=== PATIENT | female | born 1970 | race Caucasian/White ===

== ENCOUNTER 2017-04-08 11:48 | Emergency (ER) | payer BC ==
[2017-04-08 12:23] VITALS: BP 150/92
[2017-04-08] MEDS ORDERED: HYDROmorphone 2 MG/ML SDV IVPUSH STA (12:23)
[2017-04-08] MEDS ORDERED: Iopamidol 755 Mg/ML 100 ML Bottle IV ONE (12:33)
--- NOTE | 2017-04-08 13:15 | EDM.PDOC ---
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 No N/V/D. no Dysuria. No trauma. S /P hysterectomy. BP 150/92 Pulse 78 Temp 36.6 RR 17 Pulse ox 100% Onset: Today Onset Date: 04/08/17 Onset Time: 03:00 Duration: Hour(s):, Intermittent Location: Reports: Abdomen (RLQ of abdomen) Quality: Reports: Dull, Pressure, Stabbing, Throbbing Severity: Moderate Improves with: Reports: Rest Worsens with: Reports: Movement Context: Reports: Other (Sudden onset) Associated Symptoms: Reports: No Other Symptoms right lower abdomen Pain Score (Numeric/FACES): 7 - Related Data Allergies Allergy/AdvReac Type Severity Reaction Status Date / Time naproxen sodium [From Aleve] Allergy Mild Itching Verified 04/08/17 12:15 milnacipran HCl Allergy Cannot Verified 04/08/17 12:15 [From Savella] Remember Penicillins Allergy Hives Verified 04/08/17 12:15 pregabalin [From Lyrica] Allergy Change Verified 04/08/17 12:15 Mental Status tramadol Allergy Vomiting Verified 04/08/17 12:15 hydromorphone [Hydromorphone] AdvReac Intermediate Vomiting Verified 04/08/17 12 :15 morphine AdvReac Intermediate Vomiting Verified 04/08/17 12:15 Home Meds: Home Meds ARIPiprazole [Abilify] 10 mg PO DAILY 07/19/13 [History] Hydrochlorothiazide/Losartan [Hyzaar 50-12.5 MG] 1 tab PO DAILY 07/19/13 [ History] Spironolactone 100 mg PO DAILY 07/19/13 [History] Temazepam [Restoril] 30 mg PO BEDTIME 07/19/13 [History] Vilazodone [Viibryd] 40 mg PO DAILY 07/19/13 [History] Levothyroxine Sodium [Synthroid] 1 tab PO DAILY 09/02/15 [History] Levothyroxine Sodium [Synthroid] 200 mcg PO ACBREAKFAST 09/02/15 [History] Nystatin 500,000 unit PO QID PRN #20 ml 09/02/15 [Rx] Enoxaparin Sodium [Lovenox] 90 mg SQ ONETIME #1 ml 10/30/16 [Rx] Acetaminophen/HYDROcodone [[place] 325-5 MG] 1 tab PO Q4H PRN #6 tab 04/08/17 [Rx] Past Medical History Cardiovascular History: Reports: Hypertension Musculoskeletal History: Reports: Other (See Below) Other Musculoskeletal History: FIBROMYALGIA - Past Surgical History GI Surgical History: Reports: Other (See Below) Social & Family History - Family History Family Medical History: Noncontributory - Tobacco Use Smoking Status *Q: Current Every Day Smoker Years of Tobacco use: 30 Packs/Tins Daily: 1 Used Tobacco, but Quit: Yes Month Tobacco Last Used: 2004 Second Hand Smoke Exposure: No - Alcohol Use Days Per Week of Alcohol Use: 1 Number of Drinks Per Day: 1 Total Drinks Per Week: 1 - Recreational Drug Use Recreational Drug Use: No ED ROS GENERAL - Review of Systems Review Of Systems: See Below Constitutional: Reports: No Symptoms HEENT: Reports: No Symptoms Respiratory: Reports: No Symptoms Cardiovascular: Reports: No Symptoms Endocrine: Reports: No Symptoms GI/Abdominal: Reports: Abdominal Pain (RLQ of abdomen) : Reports: No Symptoms Musculoskeletal: Reports: No Symptoms Skin: Reports: No Symptoms Neurological: Reports: No Symptoms Psychiatric: Reports: No Symptoms Hematologic/Lymphatic: Reports: No Symptoms Immunologic: Reports: No Symptoms ED EXAM, GI/ABD - Physical Exam Exam: See Below Exam Limited By: No Limitations General Appearance: Alert, Moderate Distress Eyes: Bilateral: Normal Appearance Ears: Normal External Exam Nose: Normal Inspection Throat/Mouth: Normal Inspection Head: Atraumatic, Normocephalic Neck: Normal Inspection, Supple Respiratory/Chest: No Respiratory Distress, Lungs Clear, Normal Breath Sounds Cardiovascular: Normal Peripheral Pulses, Regular Rate, Rhythm GI/Abdominal Exam: Tender (RLQ of abdomen) (Female) Exam: Deferred Rectal (Female) Exam: Deferred Back Exam: Normal Inspection, Full Range of Motion Extremities: Normal Inspection, Normal Range of Motion, Non-Tender, No Pedal Edema Neurological: Alert, Oriented, CN II-XII Intact, Normal Cognition, Normal Gait Psychiatric: Normal Affect, Normal Mood Skin Exam: Warm, Dry, Intact, Normal Color, No Rash Lymphatic: No Adenopathy Course - Vital Signs Text/Narrative:: 46 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 No N/V/D. no Dysuria. No trauma. S /P hysterectomy. BP 150/92 Pulse 78 Temp 36.6 RR 17 Pulse ox 100% PE: WNWD WF C/O RLQ abd. pain with guarding Imaging: abd/pelvis CT: Neg for APPY, RAD rcommends Pelvic US Labs: CBC, BMP and UA all neg Impression: RLQ abd. pain, cause not determined Tx: Dilaudid Reexam: Improved Plan: D/C with instructions Last Recorded V/S: Last Vital Signs Temp 36.8 C 04/08/17 12:00 Pulse 78 04/08/17 12:00 Resp 17 04/08/17 12:00 BP 150/92 H 04/08/17 12:00 Pulse Ox 100 04/08/17 12:00 - Orders/Labs/Meds Labs: Laboratory Tests 04/08/17 04/08/17 04/08/17 Range/Units 11:59 12:30 12:30 WBC 7.3 (4.5-12.0) X10-3/uL RBC 4.18 (3.23-5.20) x10(6)uL Hgb 13.4 (11.5-15.5) g/dL Hct 40.0 (30.0-51.3) % MCV 95.5 (80-96) fL MCH 32.1 (27.7-33.6) pg MCHC 33.6 (32.2-35.4) g/dL RDW 12.2 (11.5-15.5) % Plt Count 273 (125-369) X10(3)uL MPV 9.3 (7.4-10.4) fL Neut % (Auto) 57.5 (46-82) % Lymph % (Auto) 29.8 (13-37) % [place] % (Auto) 8.2 (4-12) % Eos % (Auto) 4 (1.0-5.0) % Baso % (Auto) 1 (0-2) % Neut # (Auto) 4.1 (1.6-8.3) # Lymph # (Auto) 2.2 (0.6-5.0) # [place] # (Auto) 0.6 (0.0-1.3) # Eos # (Auto) 0.3 (0.0-0.8) # Baso # (Auto) 0.1 (0.0-0.2) # PT 10.0 (8.7-11.1) INR 0.99 (0.89-1.13) Sodium (135-145) mmol/L Potassium (3.5-5.3) mmol/L Chloride (100-110) mmol/L Carbon Dioxide (23-29) mmol/L BUN (5-20) mg/dL Creatinine (0.6-1.3) mg/dL Est Cr Clr Drug Dosing Estimated GFR (MDRD) (>60) BUN/Creatinine Ratio (9-20) Glucose (80-116) mg/dL Calcium (8.6-10.2) mg/dL Total Bilirubin (0.1-1.3) mg/dL Direct Bilirubin (0.1-0.2) mg/dL AST (5-27) IU/L ALT (14-26) IU/L Alkaline Phosphatase (56-112) IU/L Total Protein (6.0-8.0) g/dL Albumin (3.5-5.2) g/dL Amylase (28-100) U/L Urine Color Yellow (YELLOW) Urine Appearance Clear (CLEAR) Urine pH 5.0 (5.0-6.5) Ur Specific [place] 1.020 (1.010-1.025) Urine Protein Negative (NEGATIVE) mg/dL Urine Glucose (UA) Normal (NEGATIVE) mg/dL Urine Ketones Negative (NEGATIVE) mg/dL Urine Occult Blood Negative (NEGATIVE) Urine Nitrite Negative (NEGATIVE) Urine Bilirubin Negative (NEGATIVE) Urine Urobilinogen Normal (NEGATIVE) mg/dL Ur Leukocyte Esterase Negative (NEGATIVE) Urine RBC Not seen (0) Urine WBC Not seen (0) 04/08/17 Range/Units 12:30 WBC (4.5-12.0) X10-3/uL RBC (3.23-5.20) x10(6)uL Hgb (11.5-15.5) g/dL Hct (30.0-51.3) % MCV (80-96) fL MCH (27.7-33.6) pg MCHC (32.2-35.4) g/dL RDW (11.5-15.5) % Plt Count (125-369) X10(3)uL MPV (7.4-10.4) fL Neut % (Auto) (46-82) % Lymph % (Auto) (13-37) % [place] % (Auto) (4-12) % Eos % (Auto) (1.0-5.0) % Baso % (Auto) (0-2) % Neut # (Auto) (1.6-8.3) # Lymph # (Auto) (0.6-5.0) # [place] # (Auto) (0.0-1.3) # Eos # (Auto) (0.0-0.8) # Baso # (Auto) (0.0-0.2) # PT (8.7-11.1) INR (0.89-1.13) Sodium 135 (135-145) mmol/L Potassium 4.1 (3.5-5.3) mmol/L Chloride 101 (100-110) mmol/L Carbon Dioxide 26 (23-29) mmol/L BUN 18 (5-20) mg/dL Creatinine 0.8 (0.6-1.3) mg/dL Est Cr Clr Drug Dosing TNP Estimated GFR (MDRD) > 60 (>60) BUN/Creatinine Ratio 22.5 H (9-20) Glucose 76 L (80-116) mg/dL Calcium 9.2 (8.6-10.2) mg/dL Total Bilirubin 0.5 (0.1-1.3) mg/dL Direct Bilirubin 0.1 (0.1-0.2) mg/dL AST 23 D (5-27) IU/L ALT 19 D (14-26) IU/L Alkaline Phosphatase 60 (56-112) IU/L Total Protein 7.4 (6.0-8.0) g/dL Albumin 4.1 (3.5-5.2) g/dL Amylase 45 (28-100) U/L Urine Color (YELLOW) Urine Appearance (CLEAR) Urine pH (5.0-6.5) Ur Specific [place] (1.010-1.025) Urine Protein (NEGATIVE) mg/dL Urine Glucose (UA) (NEGATIVE) mg/dL Urine Ketones (NEGATIVE) mg/dL Urine Occult Blood (NEGATIVE) Urine Nitrite (NEGATIVE) Urine Bilirubin (NEGATIVE) Urine Urobilinogen (NEGATIVE) mg/dL Ur Leukocyte Esterase (NEGATIVE) Urine RBC (0) Urine WBC (0) Meds: Medications Discontinued Medications Generic Name Dose Route Start Last Admin Trade Name Freq PRN Reason Stop Dose Admin Hydromorphone HCl 0.5 mg 04/08/17 12:23 04/08/17 12:35 Dilaudid IVPUSH 04/08/17 12:24 0.5 mg ONETIME STA Administration Iopamidol 100 ml 04/08/17 12:33 04/08/17 12:46 Isovue-370 (76%) IV 04/08/17 12:34 95 ml ONETIME ONE Administration Departure - Departure Time of Disposition: 13:15 Disposition: Home, Self-Care 01 Condition: Good Clinical Impression: Abdominal pain Qualifiers: Abdominal location: right lower quadrant Qualified Code(s): R10.31 - Right lower quadrant pain - Discharge Information Prescriptions: Acetaminophen/HYDROcodone [[place] 325-5 MG] 1 tab PO Q4H PRN #6 tab PRN Reason: for severe pain Instructions: Abdominal or Pelvic Ultrasound, [id number] Referrals: Brooke Van MD [Primary Care Provider] - Forms: ED Department Discharge Additional Instructions: Please f/u with your PMD. Please make an appointment for a pelvic Sonogram, please come back to the ed if your symptoms get acutely worse.
--- NOTE | 2017-04-08 13:50 | CT ---
INDICATION: Right lower quadrant abdominal pain, question appendicitis. CT ABDOMEN AND PELVIS WITH CONTRAST: Spiral 2.5-mm axial sections were obtained through the abdomen and pelvis with 95 mL Isovue-370 at 2 mL per second , with sagittal and coronal reconstructions 04/08/2017 and compared with 2012. Total Exam DLP = 1202.75 mGy-cm. The appendix is visualized on coronal images #44 through #49 and appears normal. No evidence of appendicitis is noted. The appendix is also visualized on axial images #106 through #121. No evidence of bowel obstruction was seen. The uterus has a slightly bulky appearance, raising question of intramural fibroid changes. No significant appearing ovarian masses were identified, with some follicles present in the ovaries, more prominently on the left than right. No additional mass lesions, organomegaly, or free fluid collections were identified in the abdomen or pelvis. There are noted multiple anastomoses in the small bowel in the left abdomen. Clips compatible with gastric bypass surgery are also noted. Clips are seen at the cystic duct, compatible with cholecystectomy. The common bile duct was normal in caliber allowing for post cholecystectomy status. The liver had a normal appearance. The pancreas and spleen, as well as the adrenal glands appeared normal. Except for some minimal renal cortical scarring, the kidneys appeared normal. No evidence of obstructive uropathy was suggested. The urinary bladder wall appeared slightly thickened, raising question of cystitis. This should be correlated clinically. IMPRESSION: 1. No evidence of appendicitis. 2. Thickening of the wall of the urinary bladder could represent cystitis and should be correlated clinically. 3. Mild ASD with aortic calcifications noted. 4. Post multiple small bowel surgeries. 5. Post cholecystectomy. 6. Post gastric bypass. 7. Post appendectomy. 8. Cannot exclude fibroid changes in the uterus - transvaginal pelvic ultrasound may be helpful in that regard. CT PELVIS: Examination of the pelvis was obtained by CT, as noted above. No definite hernia is identified. The appendix appeared normal. The ovaries were unremarkable with follicles present more prominently on the left. The uterus appears slightly bulky and slightly irregular, suggesting the possibility of intramural fibroid changes. No evidence of bowel obstruction was seen. The urinary bladder wall is slightly thickened, raising question of cystitis. Report was called to Dr. Bennett at 1310 hours, 04/08/2017. [facility]ERS[facility] HOSPITALOsvaldo
== END 2017-04-08 13:25 | disposition home or self-care (01) ==
LOC: FB.ED 11:48
DX: R10.31 Right lower quadrant pain (principal); I10 Essential (primary) hypertension; F17.210 Nicotine dependence, cigarettes, uncomplicated; Z79.899 Other long term (current) drug therapy; Z88.0 Allergy status to penicillin; Z88.5 Allergy status to narcotic agent; Z88.8 Allergy status to other drugs, medicaments and biological substances
CPT/HCPCS: 36415; 74177; 80048; 80076; 81001; 82150; 85025; 85610; 96374; 99284; J1170; Q9967

== ENCOUNTER 2018-11-04 11:34 | Day surgery (SDC) | payer BC ==
[~2018-11-04 11:34] MED LIST: Lactated Ringers 1,000 ML IV SCH; Sodium Chloride 0.9% 10 ML Syringe FLUSH PRN
[2018-11-04] MEDS ORDERED: Lidocaine 2% 100 MG/5 ML Syringe IVPUSH ONE (11:35)
[2018-11-04] MEDS ORDERED: Dexamethasone 4 MG/ML 5 ML MDV IVPUSH ONE (11:35)
[2018-11-04] MEDS ORDERED: Propofol 200 MG/20 ML SDV IV ONE (11:35)
[2018-11-04] MEDS ORDERED: Acetaminophen 1,000 MG/100 ML Infusion Bottle IV ONE (11:35)
[2018-11-04] MEDS ORDERED: fentaNYL 100 MCG/2 ML SDV IV ONE (11:35)
[2018-11-04] MEDS ORDERED: Ondansetron 4 MG/2 ML SDV IVPUSH ONE (11:35)
[2018-11-04] MEDS ORDERED: Midazolam 1 MG/ML 2 ML SDV IV ONE (11:35)
[2018-11-04] MEDS ORDERED: Clindamycin in 0.9 % Sod Chlor 900 MG/50 ML BAG IV ONE (14:00)
[2018-11-04] MEDS ORDERED: Lidocaine 1% with EPINEPHrine 1:100,000 20 ML MDV INJECT ONE (14:23)
--- NOTE | 2018-11-04 14:46 | PCM.OPNOTE ---
- General Post-Op/Procedure Note Date of Surgery/Procedure: 11/04/18 Operative Procedure(s): r lateral epicondylectomy Pre Op Diagnosis: r lateral epicondylitis Anesthesia Technique: General LMA Primary Surgeon: Charles King Anesthesia Provider: Siddhartha MARROQUIN in mLs: 5 Complications: None Condition: Good
[2018-11-04] MEDS ORDERED: Acetaminophen/oxyCODONE 325-5 MG Tab PO PRN (15:49)
[2018-11-04] MEDS ORDERED: Ketorolac 30 MG/ML SDV IVPUSH PRN (15:50)
--- NOTE | 2018-11-04 19:07 | OR ---
DATE OF OPERATION: 11/04/2018 SURGEON: Charles King DO PREOPERATIVE DIAGNOSIS: Right elbow lateral epicondylitis. POSTOPERATIVE DIAGNOSIS: Right elbow lateral epicondylitis. PROCEDURE PERFORMED: Right lateral epicondylectomy. ANESTHESIA: LMA, general. FLUID: Lactated Ringer solution. ESTIMATED BLOOD LOSS: Less than 5 mL. COMPLICATIONS: None. SPECIMEN: None. DISCHARGE DISPOSITION: Stable to PACU. HISTORY AND INDICATIONS FOR PROCEDURE: The patient was seen preoperatively in the clinic. We treated her multiple times nonoperatively with steroid injections, which failed within a matter of few days. Risks and benefits of the procedure explained to the patient. Informed consent was obtained. DETAILS OF PROCEDURE: The patient was seen preoperatively by myself and the Anesthesia staff in the preoperative holding area where the operative site was marked. She was brought to the operative suite by the Anesthesia staff where general anesthesia was administered with a laryngeal mask airway. The right upper extremity was then prepped and draped in a sterile manner. Time-out was called identifying the correct patient, the correct procedure, the correct site and the antibiotics were in with an appropriate period of time. The right lateral epicondyle was palpated. A 2.5 to 3 cm incision was then made over the lateral condyle. Retraction was done with a small set of Weitlaner retractors, went down to the lateral epicondyle of the extensor origin and then identified the lateral epicondyle. I controlled bleeding with bipolar electrocautery. I then performed a lateral epicondylectomy with small elevator and rongeurs and took off any of the angiofibroblastic tissue that I saw. After this had been accomplished and bleeding was controlled, I closed subcutaneously with interrupted 2-0 Vicryl sutures followed by skin closure with 3-0 nylon horizontal mattress. This was followed by Betadine-soaked Adaptic dressing, clean sponges, and an Louis wrap. The patient was then allowed to awaken from general anesthesia and taken to the PACU in stable condition. /[id number] [id number]/[id number]
[2018-11-04 20:08] VITALS: BP 123/79
== END 2018-11-04 16:25 | disposition home or self-care (01) ==
LOC: FB.SDS 11:34 → FB.MS 15:13 → FB.SDS 16:25
PROVIDERS: ATTEND Orthopaedic Surgery
DX: M77.11 Lateral epicondylitis, right elbow (principal); I10 Essential (primary) hypertension; E03.9 Hypothyroidism, unspecified; F41.9 Anxiety disorder, unspecified; F32.9 Major depressive disorder, single episode, unspecified; G43.909 Migraine, unspecified, not intractable, without status migrainosus; L40.9 Psoriasis, unspecified; Z87.891 Personal history of nicotine dependence; Z79.899 Other long term (current) drug therapy
CPT/HCPCS: 24358; A9270; J0131; J1100; J2001; J2250; J2405; J2704; J3010; J3490; J7120

== ENCOUNTER → 2019-05-01 | Outpatient (CLI) | payer BC ==
[2019-05-04 04:07] LABS: IRON BIND.CAP.(TIBC) 513 ug/dL (250-450); IRON SATURATION 7 % (15-55); IRON, SERUM 38 ug/dL (27-159); UIBC 475 ug/dL (131-425)
[2019-05-05 12:08] LABS: ANA DIRECT Negative (Negative)
== END ==
LOC: FB.LAB 06:36
PROVIDERS: ATTEND Nurse Practitioner Family
DX: E55.9 Vitamin D deficiency, unspecified (principal); E89.0 Postprocedural hypothyroidism; M79.10 Myalgia, unspecified site; E61.2 Magnesium deficiency
CPT/HCPCS: 36415; 80053; 82306; 83540; 83550; 83735; 84443; 86038; 86140; 86431

== ENCOUNTER 2019-10-08 07:44 | Emergency (ER) | payer BC ==
--- NOTE | 2019-10-08 07:58 | EDM.PDOC ---
ED HPI GENERAL MEDICAL PROBLEM - General Stated Complaint: HEADACHE Time Seen by Provider: 10/08/19 07:55 Source of Information: Reports: Patient History Limitations: Reports: No Limitations - History of Present Illness INITIAL COMMENTS - FREE TEXT/NARRATIVE: 48-year-old female who reports on 10/06/2019 at 11:30 AM she developed acute onset of headache after vomiting because of something transiently stuck in her esophagus. She reports it was a quite severe pain initially and she has persisted with a viselike pain in her occiput radiating around to her ears. She has had migraine headaches in the past but has had none since 2014 and she had some Maxalt remaining that she took several doses of the preceding 2 days with really minimal to no relief of her symptoms. Yesterday, she took a nap and after that her headache was pretty much resolved and she was feeling much improved however this morning she awoke with redness of her headache with sitting up and it is at a 9/10 level at this point. There is some photophobia associated with it. There is no neck stiffness. No nausea or vomiting. No trouble swallowing. No localized area of weakness or numbness. He has not taken her blood pressure medications this morning. She is brought to the emergency department by her via private vehicle. She also reports the pain seems to radiate around to her left jaw that she has no chest pain. There are no other associated signs or symptoms. No other modifying factors. Onset: Other (10/06/2019) Duration: Getting Worse Location: Reports: Head Quality: Reports: Throbbing, Other (Viselike) Severity: Severe Improves with: Reports: Rest Worsens with: Reports: Movement Context: Reports: Other (As above) Associated Symptoms: Reports: No Other Symptoms (Except as above) Treatments FOUNDER / CEO: Reports: Acetaminophen, NSAIDS (Ibuprofen), Other Medication(s) (Maxalt) Migraine headache Pain Score (Numeric/FACES): 9 - Related Data Allergies Allergy/AdvReac Type Severity Reaction Status Date / Time naproxen sodium [From Aleve] Allergy Mild Itching Verified 10/08/19 07:51 milnacipran HCl Allergy Cannot Verified 10/08/19 07:51 [From Savella] Remember Penicillins Allergy Hives Verified 10/08/19 07:51 pregabalin [From Lyrica] Allergy Change Verified 10/08/19 07:51 Mental Status tramadol Allergy Vomiting Verified 10/08/19 07:51 Home Meds: Home Meds Spironolactone 100 mg PO DAILY 07/19/13 [History] Levothyroxine Sodium [Synthroid] 200 mcg PO ACBREAKFAST 09/02/15 [History] Cholecalciferol (Vitamin D3) [Vitamin D3] 10,000 unit PO DAILY 04/08/17 [History ] Liothyronine [Cytomel] 5 mcg PO BID 04/08/17 [History] Montelukast [Singulair] 10 mg PO DAILY 04/08/17 [History] ARIPiprazole [Aripiprazole] 5 mg PO DAILY 11/03/18 [History] Amphetamine/Dextroamphetamine [Adderall] 20 mg PO BID 11/03/18 [History] Cyanocobalamin (Vitamin B-12) [B-12 Compliance] 1,000 mcg IJ Q30D 11/03/18 [ History] Levothyroxine Sodium [Synthroid] 75 mcg PO Q48H 11/03/18 [History] Metoprolol Succinate 200 mg PO DAILY 11/03/18 [History] Ustekinumab [Stelara] 90 mg SQ Q3M 11/03/18 [History] Vilazodone [Viibryd] 40 mg PO DAILY 11/03/18 [History] amLODIPine Besylate [Norvasc] 10 mg PO DAILY 11/03/18 [History] hydroCHLOROthiazide [Hydrochlorothiazide] 25 mg PO DAILY 11/03/18 [History] Rizatriptan [Maxalt LINE TENDER] 10 mg PO ASDIRECTED PRN 10/08/19 [History] Past Medical History HEENT History: Reports: Allergic Rhinitis, Impaired Vision, Sinusitis Cardiovascular History: Reports: Hypertension Musculoskeletal History: Reports: Other (See Below) Other Musculoskeletal History: FIBROMYALGIA Psychiatric History: Reports: ADHD, Anxiety, Depression Endocrine/Metabolic History: Reports: Hypothyroidism (Status post thyroid ablation) Hematologic History: Reports: Iron Deficiency (Patient has been receiving iron infusions.) - Past Surgical History HEENT Surgical History: Reports: Oral Surgery ([place] teeth extraction) GI Surgical History: Reports: Bariatric Procedure, Cholecystectomy, Other (See Below) Other GI Surgeries/Procedures: HX TUBAL LIGATION ET ADHESIOLYSIS,. GASTRIC BIPASS Musculoskeletal Surgical History: Reports: Other (See Below) (Right elbow surgery) Social & Family History - Family History Family Medical History: Noncontributory - Tobacco Use Smoking Status *Q: Former Smoker Used Tobacco, but Quit: Yes - Caffeine Use Caffeine Use: Reports: None - Alcohol Use Alcohol Use History: Yes Alcohol Use in Last Twelve Months: Yes Alcohol Use Frequency: Weekly - Living Situation & Occupation Living situation: Reports: Occupation: Employed (She works in the lab at [employer]) ED ROS GENERAL - Review of Systems Review Of Systems: See Below Constitutional: Reports: No Symptoms HEENT: Reports: Other Respiratory: Reports: No Symptoms Cardiovascular: Reports: No Symptoms Endocrine: Reports: No Symptoms GI/Abdominal: Reports: No Symptoms : Reports: No Symptoms Musculoskeletal: Reports: No Symptoms Skin: Reports: No Symptoms Neurological: Reports: Headache Psychiatric: Reports: No Symptoms Hematologic/Lymphatic: Reports: No Symptoms Immunologic: Reports: No Symptoms - Physical Exam Exam: See Below Exam Limited By: No Limitations General Appearance: Alert, WD/WN, Moderate Distress, Obese Eye Exam: Bilateral Eye: EOMI, Normal Inspection, PERRL, Other (Photophobia) Ears: Normal External Exam, Hearing Grossly Normal Nose: Normal Inspection, No Blood Throat/Mouth: Normal Oropharynx, Normal Voice, No Airway Compromise Head Exam: Atraumatic, Normocephalic Neck: Normal Inspection, Supple, Non-Tender, Full Range of Motion, Other (No meningismus) Respiratory/Chest: No Respiratory Distress, Lungs Clear, Normal Breath Sounds, No Accessory Muscle Use, Chest Non-Tender Cardiovascular: Normal Peripheral Pulses, Regular Rate, Rhythm, No Murmur GI/Abdominal: Normal Bowel Sounds, Soft, Non-Tender Neuro Exam (Abbreviated): Alert, Oriented, CN II-XII Intact, Normal Cognition, No Motor/Sensory Deficits Back Exam: Normal Inspection, Full Range of Motion Extremities: Normal Inspection, Normal Range of Motion, Non-Tender, No Pedal Edema, Normal Capillary Refill Psychiatric: Normal Affect, Normal Mood Skin Exam: Warm, Dry, Intact, Normal Color, No Rash EKG INTERPRETATION EKG Date: 10/08/19 Time: 08:14 Rhythm: NSR Rate (Beats/Min): 66 [place]: Normal P-Wave: Present QRS: Normal ST-T: Normal QT: Normal Comparison: NA - No Prior EKG Course - Vital Signs Last Recorded V/S: Last Vital Signs Temp 35.3 C L 10/08/19 07:44 Pulse 81 10/08/19 10:04 Resp 18 10/08/19 10:04 BP 139/94 H 10/08/19 10:04 Pulse Ox 99 10/08/19 10:04 - Orders/Labs/Meds Orders: Active Orders 24 hr Category Date Time Status Head wo Cont [CT] Stat Exams 10/08/19 08:33 Ordered Sodium Chloride 0.9% [Saline Flush] Med 10/08/19 08:33 Active 10 ml FLUSH ASDIRECTED PRN Peripheral IV Insertion Adult [OM.PC] Routine Oth 10/08/19 08:33 Ordered Medication Orders Sodium Chloride (Saline Flush) 10 ml FLUSH ASDIRECTED PRN PRN Reason: Keep Vein Open Last Admin: 10/08/19 10:24 Dose: 10 ml Admin: 10/08/19 09:12 Dose: 10 ml Meds: Medications Generic Name Dose Route Start Last Admin Trade Name Freq PRN Reason Stop Dose Admin Sodium Chloride 10 ml 10/08/19 08:33 10/08/19 10:24 Saline Flush FLUSH 10 ml ASDIRECTED PRN Administration Keep Vein Open Discontinued Medications Generic Name Dose Route Start Last Admin Trade Name Freq PRN Reason Stop Dose Admin Amlodipine Besylate 10 mg 10/08/19 08:35 10/08/19 08:55 Norvasc PO 10/08/19 08:36 10 mg ONETIME ONE Administration Diphenhydramine HCl 50 mg 10/08/19 08:34 10/08/19 09:12 Benadryl IVPUSH 10/08/19 08:35 50 mg ONETIME ONE Administration Prochlorperazine Edisylate 10 52 mls @ 150 mls/hr 10/08/19 08:34 10/08/19 09: 15 mg/ Sodium Chloride IV 10/08/19 08:54 150 mls/hr ONETIME ONE Administration Sodium Chloride 500 mls @ 999 mls/hr 10/08/19 08:34 10/08/19 09:12 Normal Saline IV 10/08/19 09:04 999 mls/hr .BOLUS ONE Administration Ketorolac Tromethamine 30 mg 10/08/19 10:18 10/08/19 10:23 Toradol IVPUSH 10/08/19 10:19 30 mg ONETIME ONE Administration Metoprolol Succinate 200 mg 10/08/19 08:35 10/08/19 08:55 Toprol Xl PO 10/08/19 08:36 200 mg ONETIME ONE Administration - Radiology Interpretation Free Text/Narrative:: CT scan of head showed no acute intracranial process per the [facility] radiologist. - Re-Assessments/Exams Free Text/Narrative Re-Assessment/Exam: 10/08/19 10:15: The patient has received normal saline 500 mL bolus, Compazine 10 mg IV and Benadryl 50 mg IV with really no reduction in her headache. She also received her morning doses of Toprol and Norvasc and her blood pressure and pulse have come down nicely. The CT scan of her head showed no acute pathology. She remains neurologically stable with no meningismus and no concerning signs. I will treat the patient with Toradol 30 mg IV. 10/08/19 10:45: Her headache is much improved now. She is rating it as a 4/10 and it is decreasing. This appears to be a migraine-type headache at this point and she has a normal CT scan and no concerning signs that would prompt any additional workup and is comfortable with discharge home with this point. Departure - Departure Time of Disposition: 10:50 Disposition: Home, Self-Care 01 Condition: Good Clinical Impression: Migraine headache Qualifiers: Migraine type: unspecified Status migrainosus presence: with status migrainosus Intractability: intractable Qualified Code(s): G43.911 - Migraine, unspecified, intractable, with status migrainosus - Discharge Information Instructions: Migraine Headache, [id number] Referrals: Tiffanie Sears NP [Primary Care Provider] - Additional Instructions: The CT scan of your head was normal. This appears to be a migraine type headache at this point. You should rest. You should drink plenty of fluids. Back to the emergency department for any headache, neck stiffness, fever, unrelenting vomiting or any other concerning sign or symptom. Sepsis Event Note - Focused Exam Vital Signs: Vital Signs Temp Pulse Pulse Resp BP BP Pulse Ox 10/08/19 10:04 81 18 139/94 H 99 10/08/19 08:55 96 144/105 H 10/08/19 08:51 96 20 144/105 H 100 10/08/19 08:06 92 20 150/110 H 98 05/02/20 07:44 35.3 C L 119 H 18 191/112 H 100 Date Exam was Performed: 10/08/19 Time Exam was Performed: 10:45 - My Orders Last 24 Hours: My Active Orders 10/08/19 08:33 Head wo Cont [CT] Stat Sodium Chloride 0.9% [Saline Flush] 10 ml FLUSH ASDIRECTED PRN Peripheral IV Insertion Adult [OM.PC] Routine - Assessment/Plan Last 24 Hours: My Active Orders 10/08/19 08:33 Head wo Cont [CT] Stat Sodium Chloride 0.9% [Saline Flush] 10 ml FLUSH ASDIRECTED PRN Peripheral IV Insertion Adult [OM.PC] Routine
[2019-10-08] MEDS ORDERED: Prochlorperazine 10 MG in Sodium Chloride 0.9% 50 ML IV ONE (08:34)
[2019-10-08] MEDS ORDERED: diphenhydrAMINE 50 MG/ML SDV IVPUSH ONE (08:34)
[2019-10-08] MEDS ORDERED: Sodium Chloride 0.9% 500 ML IV ONE (08:34)
[2019-10-08] MEDS ORDERED: Metoprolol Succinate 100 MG Tab.ER PO ONE (08:35)
[2019-10-08] MEDS ORDERED: amLODIPine 10 MG Tab PO ONE (08:35)
[2019-10-08] MEDS: Sodium Chloride 0.9% 10 ML Syringe FLUSH PRN ×2 (09:12→10:24)
[2019-10-08] MEDS ORDERED: Ketorolac 30 MG/ML SDV IVPUSH ONE (10:18)
[2019-10-08 11:14] VITALS: BP 117/86; PULSE 73
== END 2019-10-08 11:09 | disposition home or self-care (01) ==
LOC: FB.ED 07:44
DX: G43.911 Migraine, unspecified, intractable, with status migrainosus (principal); I10 Essential (primary) hypertension; F41.9 Anxiety disorder, unspecified; F32.9 Major depressive disorder, single episode, unspecified; E03.9 Hypothyroidism, unspecified; Z79.899 Other long term (current) drug therapy; Z87.891 Personal history of nicotine dependence; Z88.5 Allergy status to narcotic agent; Z88.0 Allergy status to penicillin; Z88.8 Allergy status to other drugs, medicaments and biological substances
CPT/HCPCS: 70450; 93005; 96365; 96375; 99284; A9270; J0780; J1200; J1885; J7040; J7050

== ENCOUNTER 2020-02-15 09:51 | Day surgery (SDC) | payer BC ==
[2020-02-15] MEDS ORDERED: fentaNYL 100 MCG/2 ML SDV IV ONE (09:52)
[2020-02-15] MEDS ORDERED: Propofol 200 MG/20 ML SDV IV ONE (09:52)
[2020-02-15] MEDS ORDERED: Midazolam 1 MG/ML 2 ML SDV IV ONE (09:52)
[2020-02-15] MEDS ORDERED: Lactated Ringers 1,000 ML IV SCH (10:30)
[2020-02-15] MEDS ORDERED: Sodium Chloride 0.9% 10 ML Syringe FLUSH PRN (10:30)
--- NOTE | 2020-02-15 13:12 | PCM.HPR ---
H & P Addendum review - H & P Addendum Review Date of Original H & P: 02/14/20 Date Reviewed: 02/15/20 Time Reviewed: 12:30 Patient was Examined: No Changes (ok to proceed with EGJ)
--- NOTE | 2020-02-15 13:13 | PCM.OPNOTE ---
- General Post-Op/Procedure Note Date of Surgery/Procedure: 02/15/20 Operative Procedure(s): EGJ Findings: Normal Pre Op Diagnosis: Abd pain, melena Post-Op Diagnosis: Same Anesthesia Technique: MAC Primary Surgeon: Donnie Kahn Anesthesia Provider: Elvis MARROQUIN in mLs: 0 Complications: None Condition: Good
[2020-02-15 13:32] VITALS: BP 107/76; PULSE 93
--- NOTE | 2020-02-16 08:28 | OR ---
DATE OF OPERATION: 02/15/2020 SURGEON: Donnie Kahn MD PREOPERATIVE DIAGNOSES: 1. Abdominal pain. 2. Melena. POSTOPERATIVE DIAGNOSIS: Normal esophagogastrojejunoscopy. ANESTHESIA: IV sedation. DESCRIPTION OF PROCEDURE: The patient was brought to the procedure room, where she was placed on her left side and IV sedation administered. Oral bite block was placed and the upper endoscope advanced into the esophagus under direct vision without difficulty. Vocal cords were viewed and were normal. The scope was advanced through a normal-appearing esophagus into the gastric pouch. Gastric pouch and retroflexion were normal. The gastrojejunostomy anastomosis appeared normal. The short afferent limb appeared normal. I was able to follow the efferent limb for 55 cm and all was normal. There was no evidence of bleeding or other abnormalities. Air was removed and the scope withdrawn. The patient tolerated the procedure well and returned to Recovery in stable condition. I will have the patient obtain a small-bowel followthrough for evaluation of the remaining small bowel. If all this checks out normal, colonoscopy to be recommended. /[id number]
== END 2020-02-15 13:45 | disposition home or self-care (01) ==
LOC: FB.SDS 09:51
PROVIDERS: ATTEND Surgery
DX: K92.1 Melena (principal); R10.9 Unspecified abdominal pain; Z01.812 Encounter for preprocedural laboratory examination; Z20.828 Contact with and (suspected) exposure to other viral communicable diseases; Z98.0 Intestinal bypass and anastomosis status; Z88.0 Allergy status to penicillin; Z88.5 Allergy status to narcotic agent; Z88.8 Allergy status to other drugs, medicaments and biological substances
CPT/HCPCS: 00731-QZ; J2250; J2704; J3010; J7120; U0002

== ENCOUNTER 2022-01-15 06:14 | Emergency (ER) | payer BC ==
[2022-01-15] MEDS: diphenhydrAMINE 50 MG/ML SDV IM ONE (06:35)
[2022-01-15] MEDS: methylPREDNISolone Sodium Succinate 125 MG/2 ML SDV IM ONE (06:35)
[2022-01-15] MEDS: predniSONE 10 MG Tab PO STA ×2 (07:34→07:39)
[2022-01-15] MEDS: predniSONE 20 MG Tab PO STA (07:39)
[2022-01-15 07:50] VITALS: BP 148/99; PULSE 88
== END 2022-01-15 07:50 | disposition home or self-care (01) ==
LOC: FB.ED 06:14
DX: T78.3XXA Angioneurotic edema, initial encounter (principal); L23.6 Allergic contact dermatitis due to food in contact with the skin; I10 Essential (primary) hypertension; E03.9 Hypothyroidism, unspecified; Z88.0 Allergy status to penicillin; Z88.5 Allergy status to narcotic agent; Z88.8 Allergy status to other drugs, medicaments and biological substances; Z79.899 Other long term (current) drug therapy
CPT/HCPCS: 96372; 99281; 99284; J1200; J2930; J7512

== ENCOUNTER 2024-10-25 11:15 | Emergency (ER) | payer BC ==
[2024-10-25 12:00] LABS: BASOPHILS ABSOLUTE AUTO 0.1 x10-3/uL (0.0-0.1); BASOPHILS PERCENT AUTO 1.3 % (0.2-1.5); EOSINOPHILS ABSOLUTE AUTO 0.2 x10-3/uL (0.0-0.8); EOSINOPHILS PERCENT AUTO 2.1 % (0.6-8.1); HEMATOCRIT 38.7 % (34.2-48.2); HEMOGLOBIN 13.4 g/dL (11.4-15.5); LYMPHOCYTES ABSOLUTE AUTO 2.1 x10-3/uL (1.0-4.4); LYMPHOCYTES PERCENT AUTO 26.9 % (18.4-52.1); MEAN CORPUSCULAR HEMOGLOBIN 32.2 pg (23.9-33.9); MEAN CORPUSCULAR HGB CONC 34.6 g/dL (31.9-34.8); MEAN CORPUSCULAR VOLUME 93.1 fL (76.7-100.5); MEAN PLATELET VOLUME 9.2 fL (7.1-12.4); MONOCYTES ABSOLUTE AUTO 0.7 x10-3/uL (0.3-1.0); MONOCYTES PERCENT AUTO 9.2 % (4.4-15.7); NEUTROPHILS ABSOLUTE AUTO 4.8 x10-3/uL (1.5-6.3); NEUTROPHILS PERCENT AUTO 60.5 % (30.8-76.2); PLATELET COUNT,PLT 256 x10(3)uL (151-488); RED BLOOD CELL COUNT 4.16 x10(6)uL (3.60-5.20); RED CELL DISTRIBUTION WIDTH 14.5 % (12.3-16.5)
[2024-10-25 12:08] LABS: BLOOD UREA NITROGEN,BUN 9 mg/dL (7-18); CALCIUM 9.3 mg/dL (8.6-10.2); CARBON DIOXIDE,CO2 30 mmol/L (21-32); CHLORIDE,CL 103 mmol/L (100-110); EST CRCL DRUG DOSING (CG) 59.51 mL/min; ESTIMATED GFR 67 mL/min (>60); GLUCOSE RANDOM 127 mg/dL (80-116); POTASSIUM,K 3.8 mmol/L (3.5-5.3); SODIUM,NA 137 mmol/L (135-145)
[2024-10-25 12:11] LABS: BILIRUBIN,URINE NEGATIVE (NEGATIVE); GLUCOSE,URINE NORMAL (NORMAL); KETONES,URINE NEGATIVE (NEGATIVE); LEUKOCYTE ESTERASE,URINE NEGATIVE (NEGATIVE); NITRITE,URINE NEGATIVE (NEGATIVE); OCCULT BLOOD,URINE NEGATIVE (NEGATIVE); PROTEIN,URINE NEGATIVE (NEGATIVE); UROBILINOGEN,URINE NORMAL (NEGATIVE)
[2024-10-25 12:14] LABS: A/G RATIO 0.9; ALANINE AMINOTRANSFERASE,ALT 117 U/L (12-36); ALBUMIN 3.5 g/dL (3.5-5.2); ALKALINE PHOSPHATASE 120 IU/L (56-112); ASPARTATE AMNIOTRANSFERASE,AST 148 IU/L (5-25); BILIRUBIN TOTAL 0.5 mg/dL (0.1-1.3); PROTEIN TOTAL,TP 7.4 g/dL (6.0-8.0)
[2024-10-25 12:16] LABS: APPEARANCE,URINE CLEAR (CLEAR); BACTERIA,URINE OCCASIONAL (NS); COLOR,URINE YELLOW (YELLOW); RBC,URINE NOT SEEN (0-5); SQUAMOUS EPITHELIAL CELLS,UR FEW (NS,R,O); WBC,URINE 0-5 (0-5)
[2024-10-25] MEDS ORDERED: Naloxone 0.4 MG/ML SDV IVPUSH PRN (13:31)
[2024-10-25] MEDS ORDERED: Sodium Chloride 0.9% 10 ML Syringe FLUSH PRN (13:31)
[2024-10-25] MEDS: Ondansetron 4 MG/2 ML SDV IVPUSH ONE (13:52)
[2024-10-25] MEDS: fentaNYL 100 MCG/2 ML SDV IVPUSH ONE (13:55)
[2024-10-25] MEDS: Sodium Chloride 0.9% 1,000 ML IV ONE (13:58)
[2024-10-25] MEDS: Iopamidol 755 Mg/ML 100 ML Bottle IV SCH (14:17)
[2024-10-25 15:46] VITALS: BP 140/92; PULSE 82
== END 2024-10-25 15:41 | disposition home or self-care (01) ==
LOC: FB.ED 11:15
DX: K57.92 Diverticulitis of intestine, part unspecified, without perforation or abscess without bleeding (principal); I10 Essential (primary) hypertension; E03.9 Hypothyroidism, unspecified; Z88.5 Allergy status to narcotic agent; Z79.899 Other long term (current) drug therapy; Z79.890 Hormone replacement therapy
CPT/HCPCS: 36415; 74177; 80053; 81001; 85025; 86140; 96374; 96375; 99284; J2405; J3010; J7030; Q9967

== ENCOUNTER 2024-11-30 07:24 | Emergency (ER) | payer BC ==
[2024-11-30] MEDS ORDERED: Sodium Chloride 0.9% 10 ML Syringe FLUSH PRN (07:49)
[2024-11-30] MEDS: Ondansetron 4 MG/2 ML SDV IVPUSH ONE (08:03)
[2024-11-30] MEDS: Sodium Chloride 0.9% 1,000 ML IV ONE (08:03)
[2024-11-30 08:13] LABS: BASOPHILS ABSOLUTE AUTO 0.1 x10-3/uL (0.0-0.1); BASOPHILS PERCENT AUTO 0.9 % (0.2-1.5); EOSINOPHILS ABSOLUTE AUTO 0.2 x10-3/uL (0.0-0.8); EOSINOPHILS PERCENT AUTO 2.1 % (0.6-8.1); HEMATOCRIT 41.4 % (34.2-48.2); HEMOGLOBIN 13.9 g/dL (11.4-15.5); LYMPHOCYTES ABSOLUTE AUTO 1.5 x10-3/uL (1.0-4.4); LYMPHOCYTES PERCENT AUTO 18.2 % (18.4-52.1); MEAN CORPUSCULAR HEMOGLOBIN 31.2 pg (23.9-33.9); MEAN CORPUSCULAR HGB CONC 33.6 g/dL (31.9-34.8); MEAN CORPUSCULAR VOLUME 93.1 fL (76.7-100.5); MEAN PLATELET VOLUME 9.8 fL (7.1-12.4); MONOCYTES ABSOLUTE AUTO 0.2 x10-3/uL (0.3-1.0); MONOCYTES PERCENT AUTO 2.9 % (4.4-15.7); NEUTROPHILS ABSOLUTE AUTO 6.2 x10-3/uL (1.5-6.3); NEUTROPHILS PERCENT AUTO 75.9 % (30.8-76.2); PLATELET COUNT,PLT 272 x10(3)uL (151-488); RED BLOOD CELL COUNT 4.45 x10(6)uL (3.60-5.20); WHITE BLOOD CELL COUNT,WBC 8.2 x10-3/uL (3.0-10.3)
[2024-11-30 08:18] LABS: BLOOD UREA NITROGEN,BUN 8 mg/dL (7-18); BUN/CREATININE RATIO 7.3 (9-20); CALCIUM 9.4 mg/dL (8.6-10.2); CARBON DIOXIDE,CO2 27 mmol/L (21-32); CHLORIDE,CL 104 mmol/L (100-110); CREATININE 1.1 mg/dL (0.55-1.02); ESTIMATED GFR 59 mL/min (>60); GLUCOSE RANDOM 138 mg/dL (80-116); SODIUM,NA 138 mmol/L (135-145)
[2024-11-30 08:29] LABS: A/G RATIO 0.9; ALANINE AMINOTRANSFERASE,ALT 102 U/L (12-36); ALBUMIN 3.4 g/dL (3.5-5.2); ALKALINE PHOSPHATASE 124 IU/L (56-112); BILIRUBIN TOTAL 0.5 mg/dL (0.1-1.3); PROTEIN TOTAL,TP 7.4 g/dL (6.0-8.0)
[2024-11-30 08:31] LABS: LACTIC ACID 2.6 mmol/L (0.4-2.0)
[2024-11-30 08:32] LABS: ASPARTATE AMNIOTRANSFERASE,AST 177 IU/L (5-25)
[2024-11-30] MEDS: fentaNYL 100 MCG/2 ML SDV IVPUSH ONE (08:39)
[2024-11-30 12:00] VITALS: BP 111/68; PULSE 88
== END 2024-11-30 11:50 | disposition home or self-care (01) ==
LOC: FB.ED 07:24
DX: K75.2 Nonspecific reactive hepatitis (principal); R74.8 Abnormal levels of other serum enzymes; I10 Essential (primary) hypertension; E03.9 Hypothyroidism, unspecified; Z88.5 Allergy status to narcotic agent; Z88.0 Allergy status to penicillin; Z88.8 Allergy status to other drugs, medicaments and biological substances; Z79.890 Hormone replacement therapy; Z90.49 Acquired absence of other specified parts of digestive tract; Z87.891 Personal history of nicotine dependence
CPT/HCPCS: 36415; 80053; 83605; 85025; 86140; 87230; 96361; 96374; 96375; 99284; J2405; J3010; J7030